=== PATIENT | female | born 1950 | race Caucasian/White ===

== ENCOUNTER 2018-10-13 14:35 | Emergency (ER) | payer MEDICARE, BC ==
[~2018-10-13] VITALS: Ht 157.5 cm; Wt 51.0 kg
[2018-10-13 14:46] VITALS: BP 150/59
[2018-10-13] MEDS ORDERED: rabies immune globulin/PF 150 unit/ml inj IM ONE (15:35)
[2018-10-13] MEDS ORDERED: rabies vaccine (PCEC)/PF 2.5 unit kit IM ONE (15:35)
[2018-10-13] MEDS ORDERED: DOXY100T2 PO (15:39)
--- NOTE | 2018-10-13 15:59 | NUR ---
RABIES VACCINE NOT AVAILABLE AT THIS TIME,SPOKE TO [facility].
== END 2018-10-13 17:18 | disposition home or self-care (01) ==
LOC: ER 14:36
DX: S61.411A Laceration without foreign body of right hand, initial encounter (principal); S61.210A Laceration without foreign body of right index finger without damage to nail, initial encounter; S61.216A Laceration without foreign body of right little finger without damage to nail, initial encounter; Z88.0 Allergy status to penicillin; Z88.2 Allergy status to sulfonamides; Z91.040 Latex allergy status; Z79.899 Other long term (current) drug therapy; W55.01XA Bitten by cat, initial encounter; Y93.89 Activity, other specified; Y92.89 Other specified places as the place of occurrence of the external cause; Y99.8 Other external cause status
CPT/HCPCS: 90375; 90471; 90675; 96372; 99283

== ENCOUNTER 2018-10-16 11:47 | Emergency (ER) | payer MEDICARE, BC ==
[~2018-10-16] VITALS: Ht 157.5 cm; Wt 51.4 kg
[~2018-10-16 11:47] MED LIST: DOXY100T2 PO
[2018-10-16] MEDS ORDERED: rabies vaccine (PCEC)/PF 2.5 unit kit IMVAC ONE (12:05)
[2018-10-16 12:54] VITALS: BP 110/65
== END 2018-10-16 12:59 | disposition home or self-care (01) ==
LOC: ER 11:48
DX: S61.411D Laceration without foreign body of right hand, subsequent encounter (principal); S61.210D Laceration without foreign body of right index finger without damage to nail, subsequent encounter; S61.216D Laceration without foreign body of right little finger without damage to nail, subsequent encounter; Z88.0 Allergy status to penicillin; Z88.2 Allergy status to sulfonamides; Z91.040 Latex allergy status; Z79.899 Other long term (current) drug therapy; W55.01XD Bitten by cat, subsequent encounter
CPT/HCPCS: 90471; 90675; 99283

== ENCOUNTER 2019-08-12 06:53 | Day surgery (SDC) | payer MEDICARE, BC ==
[2019-08-07 15:41] LABS: BASOPHILS % (AUTO) 0.2 % (0-1); EOSINOPHILS # (AUTO) 0.3 X10'3 (0-0.9); EOSINOPHILS % (AUTO) 3.9 % (0-6); LYMPHOCYTES # (AUTO) 1.8 X10'3 (1.1-4.8); LYMPHOCYTES % (AUTO) 25.9 % (21-51); MEAN CORPUSCULAR HEMOGLOBIN 30.7 PG (27.0-31.0); MEAN CORPUSCULAR HGB CONC 33.8 g/dL (33.0-36.5); MEAN CORPUSCULAR VOLUME 91.1 FL (78-98); MEAN PLATELET VOLUME 8.8 FL (7.4-10.4); MONOCYTES # (AUTO) 0.7 X10'3 (0-0.9); MONOCYTES % (AUTO) 10.4 % (2-12); NEUTROPHILS % (AUTO) 59.6 % (42-75); PRE OP HEMATOCRIT 39.9 % (35.0-45.0); PRE OP HEMOGLOBIN 13.5 g/dL (12.0-16.0); PRE OP PLATELET COUNT 249 X10'3 (140-440); RED BLOOD COUNT 4.38 X10'6 (4.20-5.60); RED CELL DISTRIBUTION WIDTH 13.8 % (11.5-14.5)
[2019-08-07 15:52] LABS: ALBUMIN 3.9 G/DL (3.4-5.0); ALBUMIN/GLOBULIN RATIO 1.3 (1.1-1.5); ALKALINE PHOSPHATASE 73 IU/L (46-116); BLOOD UREA NITROGEN 19 MG/DL (7-18); BUN/CREATININE RATIO 18.4 (6.6-38.0); CALCIUM 9.4 MG/DL (8.5-10.1); CHLORIDE 108 MMOL/L (99-107); CREATININE 1.03 MG/DL (0.40-0.90); PRE OP ALT 26 U/L (30-65); PRE OP ANION GAP 6 (8-16); PRE OP AST 22 U/L (10-37); PRE OP BILIRUB, TOTAL 0.3 MG/DL (0.0-1.0); PRE OP GLUCOSE 86 MG/DL (70-104); PRE OP POTASSIUM 4.3 MMOL/L (3.4-5.1); PRE OP SODIUM 144 MMOL/L (135-145); TOTAL CARBON DIOXIDE 30.1 MMOL/L (24-32); eGFR 53 ML/MIN
[~2019-08-12] VITALS: Ht 157.5 cm; Wt 54.9 kg
[2019-08-12] VITALS (8 sets, daily range): BP systolic 90–120; BP diastolic 53–68
[~2019-08-12 06:53] MED LIST changes: +CYAN100019 PO; -DOXY100T2 PO; +IODI30TI PO; +MULT-30 PO; +cefazolin/dext.iso 2gm/100ml 100 ML IV ONE; +famotidine 10mg tablet PO ONE; +ringers solution, lacted 1,000 ML IV SCH
[2019-08-12] MEDS ORDERED: BUPIVAcaine/PF 2.5 mg/ml (0.25%) 30ml vial ONE (09:07)
[2019-08-12] MEDS ORDERED: LIDOcaine 0.5% (5mg/ml) 50ml vial ONE (09:17)
[2019-08-12] MEDS ORDERED: proCHLORperazine 10 MG/2 ml inj IV PRN (09:20)
[2019-08-12] MEDS ORDERED: acetaminophen 1,000mg/100ml IV 100 ML IV PRN (09:20)
[2019-08-12] MEDS ORDERED: morphine 4 MG/ML inj SYRINge IV PRN ×2 (09:20)
[2019-08-12] MEDS ORDERED: ondansetron/PF 4mg/2ml inj IV PRN (09:20)
[2019-08-12] MEDS ORDERED: ringers solution, lacted 1,000 ML IV SCH (09:20)
[2019-08-12] MEDS ORDERED: meperidine/PF 25mg/ml syringe IV PRN ×3 (09:20)
[2019-08-12] MEDS ORDERED: fentaNYL/PF 50MCG/1 ML 2ML syringe ONE (09:26)
[2019-08-12] MEDS ORDERED: midazolam 2 mg/2 ml injection ONE (09:26)
[2019-08-12] MEDS ORDERED: propofol inj 20 ML IV ONE (09:48)
--- NOTE | 2019-08-12 10:16 | NUR ---
Received from OR via [facility], accompanied by Anesthesiologist DR KIM and report given by Anesthesiologist. 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 Addendum: 08/12/19 at 1050 by Tammi Gardner RN Amended: Links added.
--- NOTE | 2019-08-12 11:21 | NUR ---
D/C INSTRUCTIONS GIVEN AND GONE OVER W/PT WHO VERBALIZED UNDERSTANDING, NAUSEA SUBSIDED, PT D/CD TO HOME VIA W/C TO PRIVATE VEHICLE W/O INCIDENT. Addendum: 08/12/19 at 1145 by Tammi Gardner RN Amended: Links added.
== END 2019-08-12 11:21 | disposition home or self-care (01) ==
LOC: PAS 06:53
PROVIDERS: ATTEND Orthopaedic Surgery Hand Surgery
DX: M19.041 Primary osteoarthritis, right hand (principal); M19.042 Primary osteoarthritis, left hand; Z87.891 Personal history of nicotine dependence; Z88.0 Allergy status to penicillin; Z88.8 Allergy status to other drugs, medicaments and biological substances; Z88.2 Allergy status to sulfonamides; Z91.018 Allergy to other foods; Z91.040 Latex allergy status; Z79.899 Other long term (current) drug therapy; Z79.891 Long term (current) use of opiate analgesic
CPT/HCPCS: 26860; 36415; 80053; 82948; 85025; 93005; A6222; C1713; J2001; J2250; J2405; J2704; J3010; J3490; A4215; A6449; A7000; J7120